=== PATIENT | male | born 1940 | race African-American/Black ===

== ENCOUNTER 2016-10-02 07:06 | Day surgery (SDC) | payer OTHER ==
[2016-09-28 14:58] LABS: HEMATOCRIT 41.6 % (40.0-51.0); HEMOGLOBIN 14.1 g/dL (13.6-17.8)
[2016-09-28 15:13] LABS: CALCIUM, SERUM 9.3 MG/DL (8.5-10.4); CHLORIDE, SERUM 108 MMOL/L (96-112); CO2 (CARBON DIOXIDE) 26 MMOL/L (24-34); CREATININE 1.21 MG/DL (0.70-1.30); GFR AFRICAN AMERICAN 68 ML/MIN (>=60); GFR NON AFRICAN AMERICAN 59 ML/MIN (>=60); GLUCOSE, SERUM 95 MG/DL (60-99); POTASSIUM, SERUM 4.3 MMOL/L (3.5-5.3); SODIUM, SERUM 141 MMOL/L (135-148)
[2016-09-28 15:14] LABS: BUN (BLOOD UREA NITROGEN) 15 MG/DL (6-23)
--- NOTE | ~2016-10-02 | OP ---
Record Of Operation [facility] [address] [place]. [address] NAME: CHEYENNE BACA : 44 STATUS : [facility]#: [id number] AGE: 76 ADM/REG DATE : 10/02/16 MR#: [id number] REPORT SERV DATE: 10/02/16 DICTATED BY: PERCY GARCIA III DATE: 10/02/16 REPORT STATUS : Draft TRANSCRIBED BY: MODL DATE: 10/02/16 DATE OF PROCEDURE: 10/02/2016 PREOPERATIVE DIAGNOSIS: Elevated PSA. POSTOPERATIVE DIAGNOSES: 1. Elevated PSA. 2. Enlarged prostate. PROCEDURES: 1. Transrectal ultrasound. 2. Ultrasound guidance. 3. Needle biopsy of the prostate. SURGEON: Percy Garcia M.D. ANESTHESIA: MAC. SPECIMEN: Prostate biopsies x14. INDICATION: Mr. Baca is a 76-year-old male with a PSA of 26. Consent is obtained for prostate biopsy. He has taken preoperative antibiotics and was given Rocephin in the preop area. PROCEDURE IN DETAIL: After consent was obtained, the patient was identified and was taken to the OR and placed in the left lateral decubitus position. MAC anesthesia was administered. An ultrasound probe was inserted. A three-dimensional volume was 35 mL. There were some scattered calcifications in the prostate gland. The ultrasound guidance was then activated and needle biopsies performed. There were two cores taken from the right and left base, three cores from the right and left mid gland, and two cores on the right and left apex. There was minimal bleeding noted. A post hemorrhoidectomy roll was then placed in the rectum. The patient was taken to phase-2 recovery in stable condition. PH/MODL Percy Garcia III, M.D. / [id number] CC: Sayda Luciano III, M.D.
[~2016-10-02 07:06] MED LIST: LIOR10 PO; LISINOPRIL40 MG PO; MOBIC15 MG PO; NORV10 PO; REM15 PO; ZANTAC150 MG PO; ZOCOR10 PO
== END 2016-10-02 12:49 | disposition home or self-care (01) ==
LOC: SDC 07:06
PROVIDERS: Urology
PROC: 0VB03ZX Excision of Prostate, Percutaneous Approach, Diagnostic (ICD-10-PCS; principal; 2016-10-02 10:15)
DX: C61 Malignant neoplasm of prostate (principal); N40.0 Benign prostatic hyperplasia without lower urinary tract symptoms; I10 Essential (primary) hypertension; Z79.1 Long term (current) use of non-steroidal anti-inflammatories (NSAID); Z79.899 Other long term (current) drug therapy
CPT/HCPCS: 76872; 76942; 80048; 85014; 85018; 88305; 93005; J2250; J2405; J3010